=== PATIENT | male | born 1985 | race Hispanic/Latino ===

== ENCOUNTER 2021-07-06 11:25 | Emergency (ER) | payer BC, SELFPAY ==
[2021-07-07 12:55] LABS: SARS-CoV-2 PCR by NAA DETECTED (NotDetected)
== END 2021-07-06 13:10 | disposition home or self-care (01) ==
LOC: NAV ERS 11:25
DX: U07.1 COVID-19 (principal)
CPT/HCPCS: 99283; U0003; U0005